=== PATIENT | female | born 1955 | race Caucasian/White ===

== ENCOUNTER 2016-10-08 11:16 | Emergency (ER) | payer OTHER ==
[2016-10-08 11:50] LABS: BASOPHIL 0.8 % (0-2); EOSINOPHIL 6.3 % (0-5); HCT 38.2 % (37.0-47.0); LYMPHOCYTE 31.7 % (15-48); MCH 28.5 pg (25.0-31.0); MCV 83.8 fL (78.0-100.0); MONOCYTE 8.9 % (0-12); MPV 8.6 fL (6.0-9.5); NEUTROPHIL 52.3 % (41-80); PLT 310 K/uL (150-400); RBC 4.56 M/uL (4.20-5.40); RDW 13.9 % (11.5-14.0); WBC 7.7 K/uL (4.0-10.5)
[2016-10-08 11:56] LABS: BILIRUBIN NEGATIVE (NEGATIVE); BLOOD TRACE-INTACT Ery/uL (NEGATIVE); CLARITY CLEAR (CLEAR); COLOR YELLOW (YELLOW); GLUCOSE (U) NORMAL (NORMAL); KETONE (U) NEGATIVE (NEGATIVE); LEUKOCYTES NEGATIVE Leu/uL (NEGATIVE); NITRITE NEGATIVE (NEGATIVE); PROTEIN NEGATIVE (NEGATIVE); SPECIFIC GRAVITY <=1.005 (1.001-1.030); UROBILINOGEN 0.2 mg/dL (0.2-1.0)
[2016-10-08 11:57] LABS: URINARY RBC RARE; URINARY WBC RARE
[2016-10-08 12:05] LABS: INR 0.98 (0.9-1.2); PROTHROMBIN TIME 12.6 SECONDS (11.7-14.0)
[2016-10-08 12:06] LABS: PTT 25.8 SECONDS (23.2-31.4)
[2016-10-08 12:13] LABS: LACTIC ACID 0.9 mmol/L (0.5-2.2)
[2016-10-08 12:26] LABS: ALBUMIN 4.2 g/dL (3.5-5.0); BILIRUBIN - TOTAL 0.3 mg/dL (0.1-1.0); CREATININE 0.8 mg/dL (0.5-1.0); GLOBULIN (CALCULATION) 3.3 g/dL (2.2-4.2); POTASSIUM 4.2 mmol/L (3.5-5.1); TOTAL PROTEIN 7.5 g/dL (6.4-8.3)
== END 2016-10-08 13:21 | disposition home or self-care (01) ==
LOC: FER 11:16
PROVIDERS: Emergency Medicine
DX: R10.11 Right upper quadrant pain (principal); N20.0 Calculus of kidney; Z87.442 Personal history of urinary calculi
CPT/HCPCS: 36415; 80053; 81001; 82150; 83605; 83690; 85025; 85610; 85730

== ENCOUNTER → 2016-10-20 | Day surgery (SDC) | payer OTHER ==
[~2016-10-20] VITALS: Ht 157.5 cm; Wt 90.5 kg
== END | disposition home or self-care (01) ==
LOC: FAS 10:39
DX: K81.1 Chronic cholecystitis (principal); K76.0 Fatty (change of) liver, not elsewhere classified; K21.9 Gastro-esophageal reflux disease without esophagitis; K29.60 Other gastritis without bleeding; Z90.710 Acquired absence of both cervix and uterus; Z86.010 Personal history of colon polyps; Z87.442 Personal history of urinary calculi; Z80.0 Family history of malignant neoplasm of digestive organs; Z83.42 Family history of familial hypercholesterolemia; Z82.49 Family history of ischemic heart disease and other diseases of the circulatory system; Z82.62 Family history of osteoporosis; Z83.3 Family history of diabetes mellitus; Z87.891 Personal history of nicotine dependence; Z79.82 Long term (current) use of aspirin; Z79.899 Other long term (current) drug therapy; Z98.890 Other specified postprocedural states
CPT/HCPCS: 74300; 88304; 88307; 88313; 93005; J1170; J2405; J2704; J2710; J3010; Q9962